=== PATIENT | female | born 1995 | race Caucasian/White ===

== ENCOUNTER 2017-08-26 21:24 | Emergency (ER) | payer OTHER ==
[2017-08-26 21:42] VITALS: BP 105/67; PULSE 67; TEMP 98; BMI 21.7
--- NOTE | 2017-08-26 21:58 | PDOC ---
History of Present Illness - General History Source: Patient Exam Limitations: No Limitations - History of Present Illness Initial Comments: 08/26/17 22:00 The patient is a 22 year old female, with no significant past medical history, who presents to the emergency department complaining of a foreign body sensation in the vaginal vault since earlier this afternoon. The patient reports inserting a tampon in at approximately 14:00. Patient reports she took a nap, but when she woke up she did not find it in her vault. Patient states she could not remember if she put the tampon in the first place. She denies any abdominal pain, nausea, vomiting, diarrhea, or constipation. She denies any fever, chills, headache, or dizziness. Patient reports she is currently on her period. PAST MEDICAL HISTORY: no significant history PAST SURGICAL HISTORY: no significant history FAMILY HISTORY: no pertinent history SOCIAL HISTORY: Pt lives with family and is employed. MEDICATIONS: reviewed ALLERGIES: As per nursing notes General: No fevers or chills, no weakness, no weight loss HEENT: No change in vision. No sore throat,. No ear pain CardioVascular: No chest pain or shortness of breath Respiratory:No cough, or wheezing. Gastrointestinal: no nausea, vomiting, diarrhea or constipation, No rectal bleeding Genitourinary: Foreign body sensation in vaginal vault. No dysuria, hematuria, or frequency Musculoskeletal: No joint or muscle pain or swelling Neurologic: No headache, vertigo, dizziness or loss of consciousness Psychiatric: No depression Skin: No rashes or easy bruising Endocrine: no increased thirst or abnormal weight change Allergic: no skin or latex allergy All other systems reviewed and normal GENERAL: The patient is awake, alert, and fully oriented, in no acute distress. HEAD: Normal with no signs of trauma. EYES: Pupils equal, round and reactive to light, extraocular movements intact, sclera anicteric, conjunctiva clear. EXTREMITIES: Normal range of motion, no edema. PELVIC: On speculum exam no tampon visible. On manual exam no tampon palpated. ABDOMEN: Soft, nondistended, normal bowel sounds, nontender to palpation diffusely NEUROLOGICAL: Normal speech, normal gait. PSYCH: Normal mood, normal affect. SKIN: Warm, Dry, normal turgor, no rashes or lesions noted. <Nugent,Giomilsy - Last Filed: 08/26/17 22:00> - General History Source: Patient Exam Limitations: No Limitations - History of Present Illness Initial Comments: 08/26/17 23:05 A portion of this note was documented by scribe services under my direction. I have reviewed the details of the note, within reason, and agree with the documentation. The case summary and management plan written by me. Assessment and plan: This is a 22-year-old female comes in complaining of possible foreign body/retained tampon vaginally. On exam patient had no retained tampon. Patient discharged home. <Jovan Pham I - Last Filed: 08/26/17 23:05> - General Chief Complaint: Foreign Body (FB) Stated Complaint: THINK SHE HAS TAMPON STUCK INSIDE Time Seen by Provider: 08/26/17 21:56 Past History <Zack Nugent - Last Filed: 08/26/17 22:00> - Past Medical History Other medical history: DENIES - Suicide/Smoking/Psychosocial Hx Smoking History: Never smoked Have you smoked in the past 12 months: No Information on smoking cessation initiated: No Hx Alcohol Use: No Drug/Substance Use Hx: No Substance Use Type: None <Jovan Pham I - Last Filed: 08/26/17 23:05> - Past Medical History Allergies/Adverse Reactions: Allergies Allergy/AdvReac Type Severity Reaction Status Date / Time No Known Allergies Allergy Verified 08/26/17 21:25 Home Medications: Ambulatory Orders NK [No Known Home Medication] 08/26/17 *Physical Exam - Vital Signs Last Vital Signs Temp Pulse Resp BP Pulse Ox 98 F 67 16 105/67 99 08/26/17 21:25 08/26/17 21:25 08/26/17 21:25 08/26/17 21:25 08/26/17 21:25 <Zack Nugent - Last Filed: 08/26/17 22:00> - Vital Signs Last Vital Signs Temp Pulse Resp BP Pulse Ox 98 F 67 16 105/67 99 08/26/17 21:25 08/26/17 21:25 08/26/17 21:25 08/26/17 21:25 08/26/17 21:25 <Jovan Pham I - Last Filed: 08/26/17 23:05> *DC/Admit/Observation/Transfer - Attestations Scribe Attestion: 08/26/17 22:00 Documentation prepared by Zack Nugent, acting as vp medical for Jovan Pham MD. <Zack Nugent - Last Filed: 08/26/17 22:00> - Discharge Dispostion Admit: No <Jovan Pham I - Last Filed: 08/26/17 23:05> Diagnosis at time of Disposition: Retained tampon Qualifiers: Encounter type: initial encounter Qualified Code(s): T19.2XXA - Foreign body in vulva and vagina, initial encounter - Discharge Dispostion Disposition: HOME Condition at time of disposition: Stable - Patient Instructions Additional Instructions: There was no retained tampon on exam Continue any medications as previously prescribed by your physician. Thank you for coming to the Emergency Department today for your care. It was a pleasure to see you today. Please note that your evaluation is INCOMPLETE until you follow-up with your doctor.
== END 2017-08-26 22:00 | disposition home or self-care (01) ==
LOC: FER 21:24
DX: T19.2XXA Foreign body in vulva and vagina, initial encounter (principal); X58.XXXA Exposure to other specified factors, initial encounter; Y93.89 Activity, other specified; Y92.9 Unspecified place or not applicable
CPT/HCPCS: 99281-25